=== PATIENT | female | born 1980 | race American Indian/Alaskan Native ===

== ENCOUNTER 2018-06-06 11:00 | Outpatient (CLI) | payer BC | END 2018-06-06 11:01 | disposition home or self-care (01) | LOC: SLR 11:00 | PROVIDERS: ATTEND Internal Medicine Pulmonary Disease | DX: G47.33 Obstructive sleep apnea (adult) (pediatric) (principal) | CPT/HCPCS: 95810 ==

== ENCOUNTER 2018-07-26 11:00 | Outpatient (CLI) | payer BC | END 2018-07-26 11:01 | disposition home or self-care (01) | LOC: SLR 11:00 | PROVIDERS: ATTEND Internal Medicine Pulmonary Disease | DX: G47.33 Obstructive sleep apnea (adult) (pediatric) (principal) | CPT/HCPCS: 95811 ==

== ENCOUNTER 2018-11-06 10:29 | Outpatient (CLI) | payer BC ==
--- NOTE | 2018-11-06 18:05 | Magnetic Resonance Report ---
PROCEDURE: MR ABDOMEN WO/W CON HISTORY: CYST OF KIDNEY, OTHER MICROSCOPIC HEMATURIA FINDINGS: MRI of the abdomen was performed using axial T2*gradient echo, axial T1, coronal T2*gradien t echo, coronal T1, axial fat saturated T1-weighted images, followed by axial T1-weighted gradient ec ho images obtained following intravenous administration of 18 cc MultiHance. Coronal postcontrast jackson ges were also acquired. Comparison is made to the CT of the abdomen and pelvis of September 17, 2018, at which time a left renal lesion was noted. In the posterior midpole of the left kidney, there is a slightly low T2, high intermediate T1-weighte d structure which does not enhance consistent with hemorrhagic cyst, 1.8 x 1.5 cm. In the liver, there are several hypervascular lesions which are best seen on arterial phase imaging. These are minimally T2 hyperintense to the remainder of the liver and are isointense to liver on prec ontrast T1-weighted images, consistent with lesions of hepatocellular origin. Although hyperintense t o liver the arterial phase, on delayed phase imaging may become isointense to the remainder of the li luisana. These lesions most probably represent focal nodular hyperplasia. Hepatic adenomas could potentia lly have this appearance, particularly if the patient is on oral contraceptives, and and clinical cor relation is advised. Right lobe hepatic dome lesion, arterial phase image 29 measures 3.5 x 2.8 cm. L esion in the anterior segment right lobe of liver, arterial phase image 42 measures approximately 1.2 cm. The posterior segment right lobe of liver, image 43 measures 1.2 cm. The mid posterior segment r ight lobe of liver, image 43 measures 1.5 cm. Lesion in posterior segment right lobe of liver which 6 7 measures 1.8 cm. Lesion inferior aspect of posterior segment right lobe of liver, image 84 measures 1.7 cm. The spleen, adrenal glands, pancreas, gallbladder are unremarkable. The abdominal aorta is normal in size. The celiac axis, superior mesenteric artery, inferior mesenteric artery and bilateral renal arteries are widely patent. IMPRESSION: Hemorrhagic left renal cyst Multiple hypervascular liver lesions, which could represent focal nodular hyperplasia or hepatic jean carlos omas This document is electronically signed by Quique Hdz MD., November 06 2018 06:02:40 PM ET
== END 2018-11-06 10:30 | disposition home or self-care (01) ==
LOC: MRI 10:29
PROVIDERS: ATTEND Urology
DX: N28.1 Cyst of kidney, acquired (principal); K76.89 Other specified diseases of liver
CPT/HCPCS: 74183; A9577

== ENCOUNTER 2019-03-08 12:05 | Outpatient (CLI) | payer BC ==
[2019-03-08 13:24] LABS: Alanine Aminotransferase 18 units/L (7-56); Albumin 4.2 g/dL (3.9-5); BUN/Creatinine Ratio 13; Blood Urea Nitrogen 10 mg/dL (7-17); Calcium 9.4 mg/dL (8.4-10.2); Hemolysis Index 0
== END 2019-03-08 12:06 | disposition home or self-care (01) ==
LOC: LAB 12:05
PROVIDERS: ATTEND Internal Medicine Gastroenterology
DX: K59.09 Other constipation (principal); K76.9 Liver disease, unspecified
CPT/HCPCS: 36415; 80053; 82106; 86705; 86803

== ENCOUNTER 2019-05-16 15:08 | Outpatient (CLI) | payer BC ==
[2019-05-16 16:21] LABS: Alanine Aminotransferase 20 units/L (7-56); Albumin 4.3 g/dL (3.9-5); BUN/Creatinine Ratio 13; Blood Urea Nitrogen 9 mg/dL (7-17); Calcium 9.5 mg/dL (8.4-10.2); Chol/HDL Ratio 4.03 %; HDL Cholesterol 51 mg/dL (40-59); Hemolysis Index 5; LDL Cholesterol,Direct 147 mg/dL (50-130)
== END 2019-05-16 15:09 | disposition home or self-care (01) ==
LOC: LAB 15:08
PROVIDERS: ATTEND Nurse Practitioner Gerontology
DX: E78.5 Hyperlipidemia, unspecified (principal); I10 Essential (primary) hypertension; R73.03 Prediabetes
CPT/HCPCS: 36415; 80053; 80061; 83036

== ENCOUNTER 2019-06-04 07:17 | Day surgery (SDC) | payer BC ==
[~2019-06-04 07:17] MED LIST: SODIUM CHLORIDE 0.9% 1000 ML 1,000 ML IV SCH
[2019-06-04] MEDS ORDERED: WATER FOR IRRIG STERILE 1,000 ML BOTTLE ONE (07:32)
[2019-06-04] MEDS ORDERED: WATER FOR IRRIG STERILE 250 ML BOTTLE IR ONE (07:32)
[2019-06-04] MEDS ORDERED: LIDOCAINE (2%) 20 MG/1 ML VIAL 20 ML MDV INFILTRATI ONE (07:52)
[2019-06-04] MEDS ORDERED: PROPOFOL 200 MG/20 ML VIAL IV ONE ×2 (07:52→07:53)
[2019-06-04] MEDS ORDERED: LIDOCAINE MPF (2%) 20 MG/1 ML VIAL 5 ML ONE (08:00)
--- NOTE | 2019-06-04 08:21 | Anesthesia Consultation ---
Anesthesia Consult and Med Hx Date of service: 06/04/19 - Airway Anesthetic Teeth Evaluation: Good ROM Head & Neck: Adequate Mental/Hyoid Distance: Adequate Mallampati Class: Class I Intubation Access Assessment: Good - Pulmonary Exam CTA: Yes - Cardiac Exam Cardiac Exam: RRR - Pre-Operative Health Status ASA Pre-Surgery Classification: ASA2, ASA3 Proposed Anesthetic Plan: MAC - Pulmonary Hx Smoking: No Hx Respiratory Symptoms: No SOB: No Hx Sleep Apnea: Yes (Uses CPAP machine at home) - Cardiovascular System Hx Hypertension: Yes Hx Angina: No - Central Nervous System Hx Neuromuscular Disorder: No Hx Psychiatric Problems: Yes (Anxiety/Depression) - Gastrointestinal Hx Gastroesophageal Reflux Disease: Yes - Endocrine Hx Liver Disease: Yes (Hepatic adenoma) - Other Systems Hx Alcohol Use: Yes (Occasinally) Hx Substance Use: No Hx Obesity: Yes (BMI 37.6) - Additional Comments Anesthesia Medical History Comments: Patient denied previous anesthesia complications
--- NOTE | 2019-06-04 08:24 | Anesthesia Day of Surgery ---
Anesthesia Day of Surgery - Day of Surgery Patient Examined: Yes Patient H&P Reviewed: Yes Patient is NPO: Yes
--- NOTE | 2019-06-04 09:03 | Short Stay Summary ---
Short Stay Documentation Date of service: 06/04/19 Narrative H&P: The patient presents for diagnostic colonoscopy for severe constipation. 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.) Past Surgical History: Other (history of laparoscopy) Social history: no significant social history, no smoking, no alcohol abuse - Allergies and Medications Current Medications: Allergies No Known Allergies Allergy (Unverified 09/17/18 09:08) Home Medications Medication Instructions Recorded Confirmed Last Taken Type Amoxicillin/K Clav Tab [Augmentin 1 each PO Q12HR 06/04/19 06/04/19 06/03/19 20:00 History 500 MG TAB] DULoxetine [Cymbalta] 60 mg PO QDAY 06/04/19 06/04/19 06/03/19 08:00 History Metoprolol Succinate [Toprol Xl] 50 mg PO DAILY 06/04/19 06/04/19 06/03/19 08:00 History Active Medications Sodium Chloride (Nacl 0.9% 1000 Ml) 1,000 mls @ 50 mls/hr IV DIRECT JOSE Last Admin: 06/04/19 08:06 Dose: 50 mls/hr Documented by: - Physical exam General appearance: no acute distress, well-nourished, obese Integumentary: no rash, no growths HEENT: Atraumatic, PERRLA, EOMI, Mucous membr. moist/pink Lungs: Clear to auscultation, Normal air movement Breasts: deferred Heart: Regular rate, Normal S1, Normal S2, No murmurs Gastrointestinal: normoactive bowel sounds, no tenderness, no distended, no masses, no guarding, no organomegaly Female Genitourinary: deferred Rectal Exam: normal exam-external/orifice, no mass Extremities: no ischemia, pulses intact, pulses symmetrical, No edema, normal temperature, normal color, Full ROM Neurological: Normal gait, Normal speech, Strength at 5/5 X4 ext, Normal tone, Sensation intact, Cranial nerves 3-12 NL - Brief post op/procedure progress note Date of procedure: 06/04/19 Findings: see dictated reports Estimated blood loss: none Pathology: none Condition: stable - Disposition Condition at discharge: Good Disposition: DC-01 TO HOME OR SELFCARE - Discharge Diagnoses (1) Constipation Status: Acute Short Stay Discharge Plan Activity: other (no driving for 24 hours) Weight Bearing Status: Full Weight Bearing Diet: regular, other (plant based) Follow up with: ALICIA CARRASQUILLO MD [Primary Care Provider] - 7 Days Prescriptions: Linaclotide [Linzess] 145 mcg PO QDAY #30 capsule
--- NOTE | 2019-06-04 09:07 | Operative Report ---
Operative Report Operative Report: Date of procedure: 06/17/2019 Preprocedure diagnosis: Severe, chronic constipation Post procedure diagnosis: Normal study Procedure: Colonoscopy to the cecum Endoscopist: Dr. Valera Anesthesia: Monitored anesthesia care per anesthesia department Estimated blood loss: 0 Medications: Monitored anesthesia care. See separate report by anesthesia for details. After careful discussion of the nature and purpose of the procedure as well as details of the technique risks benefits and alternatives the patient gave consent. Please see recent history and physical from the office. The patient was placed in the left lateral decubitus position and medicated per anesthesia. A rectal exam was performed sphincter tone was normal there were no masses palpable. The Olympus colonoscope was passed transanally and advanced under continuous direct vision without difficulty to the cecum. The colon was well prepared. The cecum was normal. The ascending colon was normal and on forward and retroflexed views. The transverse colon, descending colon, and sigmoid colon were normal. The rectum was normal on forward and retroflexed views. The procedure was well-tolerated overall and the patient was observed in recovery. Conclusions: Normal colonoscopy to the cecum. Plan: Begin Linzess 145 g by mouth daily 30 minutes before breakfast. Office follow-up in 3 months. High-fiber diet. Repeat colonoscopy in 10 years, sooner if clinically indicated. Signed electronically: Benedict Valera M.D.
[2019-06-04 09:15] VITALS: BP 114/72
--- NOTE | 2019-06-04 10:10 | Post Anesthesia Evaluation ---
- Post Anesthesia Evaluation Patient Participated: Yes Airway Patent: Yes Stable Respiratory Function: Yes Nausea/Vomiting: No Temp > 96.8F: Yes Pain Manageable: Yes Adequeate Hydration: Yes Anesthesia Complications: No
== END 2019-06-04 07:18 | disposition home or self-care (01) ==
LOC: GIO 07:17
PROVIDERS: ATTEND Internal Medicine Gastroenterology
DX: K59.09 Other constipation (principal); K21.9 Gastro-esophageal reflux disease without esophagitis; I10 Essential (primary) hypertension; G47.30 Sleep apnea, unspecified; E66.9 Obesity, unspecified; F32.9 Major depressive disorder, single episode, unspecified; F41.9 Anxiety disorder, unspecified; Z79.899 Other long term (current) drug therapy; Z68.37 Body mass index [BMI] 37.0-37.9, adult; Z72.89 Other problems related to lifestyle; Z98.890 Other specified postprocedural states
CPT/HCPCS: 45378; 81025; J2704; J7030